=== PATIENT | female | born 1925 | race Two or more races ===

== ENCOUNTER → 2016-04-19 | Outpatient (CLI) | payer MEDICARE, MEDICAID ==
[~2016-04-19] MED LIST: AMITIZA24 MCG PO; ARTIFICIAL TEAR15 ML OPHTH; ATIVAN 1 MG1 MG PO; BLUE TOP; CARAFATE1 GM PO; CELEBREX200 MG PO; CETIRIZINE HCL5 MG PO; COUMADIN ** IA3 MG PO; COUMADIN ** IA5 MG PO; COUMADIN **IA2.5 MG PO; COUMADIN6 MG PO; CYSTEX PLUS TA1 EACH PO; DITROPAN5 MG PO; DOC-Q-LACE100 MG PO; DULCOLAX10 MG R; FEOSOL325 MG PO; FLONASE 50 MCG/16 GM NOSE; GAVISCON LIQUI355 ML PO; GAVISCON PO; HYDRODIURIL25 MG PO; KLOR-CON M2020 MEQ PO; LAMISIL AT 1% CRE1 % TOP; LASIX40 MG PO; LASIX80 MG PO; MILK OF MA400 MG/5 M PO; MINERIN CREME454 GM TOP; MIRALAX PO527 GM/BOT PO; MYLICON OR GAS-80 MG PO; NASA MIST SALI177 ML; OCEAN NASAL) (A44 ML NOSE; ORGAN-I NR200 MG PO; PERCOCET 5-3251 EACH PO; PRENATAL 1+1)(P1 TAB PO; PREPARATION H O57 GM; PREPARATION H26 GM TOP; PRILOSEC20 MG PO; Q-TUSSIN100 MG/5 M PO; RITALIN 5MG5 MG PO; SALONPAS PATCH1 EAC1 TRANS; SINGULAIR10 MG PO; THERAGRAN-M1 TAB PO; TRIAMCINOLONE454 GM TOP; TYLENOL EXTRA500 MG PO; ULTRAM50 MG PO; ZINC OXIDE TOP
[2016-04-19 08:09] LABS: INR - (THERAPEUTIC) 1.5 (0.9-1.1); PROTIME 16.8 SECONDS (9.6-11.1)
== END | disposition disaster alternative care site (69) ==
PROVIDERS: Family Medicine
DX: I35.0 Nonrheumatic aortic (valve) stenosis (principal); I48.91 Unspecified atrial fibrillation; E87.6 Hypokalemia; Z79.01 Long term (current) use of anticoagulants; Z95.0 Presence of cardiac pacemaker

== ENCOUNTER → 2016-05-03 | Outpatient (CLI) | payer MEDICARE, MEDICAID ==
[2016-05-03 07:37] LABS: INR - (THERAPEUTIC) 2.5 (0.9-1.1); PROTIME 28.1 SECONDS (9.6-11.1)
== END | disposition disaster alternative care site (69) ==
PROVIDERS: Family Medicine
DX: E87.6 Hypokalemia (principal); I35.0 Nonrheumatic aortic (valve) stenosis; I48.91 Unspecified atrial fibrillation; Z95.0 Presence of cardiac pacemaker; Z79.01 Long term (current) use of anticoagulants

== ENCOUNTER → 2016-05-23 | Outpatient (CLI) | payer MEDICARE, MEDICAID ==
[2016-05-23 08:36] LABS: INR - (THERAPEUTIC) 2.2 (0.9-1.1); PROTIME 24.3 SECONDS (9.6-11.1)
== END | disposition disaster alternative care site (69) ==
PROVIDERS: Family Medicine
DX: E87.6 Hypokalemia (principal); I35.0 Nonrheumatic aortic (valve) stenosis; I48.91 Unspecified atrial fibrillation; Z95.0 Presence of cardiac pacemaker; Z79.01 Long term (current) use of anticoagulants

== ENCOUNTER → 2016-06-21 | Outpatient (CLI) | payer MEDICARE, MEDICAID ==
[2016-06-21 08:38] LABS: INR - (THERAPEUTIC) 2.18 (0.92-1.07); PROTIME 23.1 SECONDS (9.8-11.4)
== END ==
PROVIDERS: Family Medicine
DX: E87.6 Hypokalemia (principal); I35.0 Nonrheumatic aortic (valve) stenosis; I48.91 Unspecified atrial fibrillation

== ENCOUNTER → 2016-07-05 | Outpatient (CLI) | payer MEDICARE, MEDICAID ==
[2016-07-05 08:57] LABS: INR - (THERAPEUTIC) 2.08 (0.92-1.07)
== END | disposition disaster alternative care site (69) ==
PROVIDERS: Family Medicine
DX: E87.6 Hypokalemia (principal); I35.0 Nonrheumatic aortic (valve) stenosis; I49.1 Atrial premature depolarization; Z79.01 Long term (current) use of anticoagulants; Z95.0 Presence of cardiac pacemaker

== ENCOUNTER → 2016-07-19 | Outpatient (CLI) | payer MEDICARE, MEDICAID ==
[2016-07-19 09:17] LABS: INR - (THERAPEUTIC) 2.02 (0.92-1.07); PROTIME 21.4 SECONDS (9.8-11.4)
== END | disposition disaster alternative care site (69) ==
PROVIDERS: Family Medicine
DX: E87.6 Hypokalemia (principal); I35.0 Nonrheumatic aortic (valve) stenosis; I48.91 Unspecified atrial fibrillation; Z79.01 Long term (current) use of anticoagulants; Z95.0 Presence of cardiac pacemaker

== ENCOUNTER → 2016-08-02 | Outpatient (CLI) | payer MEDICARE, MEDICAID ==
[2016-08-02 08:27] LABS: INR - (THERAPEUTIC) 2.73 (0.92-1.07)
== END | disposition disaster alternative care site (69) ==
PROVIDERS: Family Medicine
DX: E87.6 Hypokalemia (principal); I35.0 Nonrheumatic aortic (valve) stenosis; I48.91 Unspecified atrial fibrillation; Z79.01 Long term (current) use of anticoagulants; Z95.0 Presence of cardiac pacemaker